=== PATIENT | female | born 1965 | race Caucasian/White ===

== ENCOUNTER 2019-09-09 20:30 | Outpatient (CLI) | payer BC | END 2019-09-09 20:31 | disposition home or self-care (01) | LOC: SLEEPLAB 20:30 | PROVIDERS: ATTEND Internal Medicine | DX: G47.33 Obstructive sleep apnea (adult) (pediatric) (principal) | CPT/HCPCS: 95811 ==

== ENCOUNTER 2020-05-02 08:35 | Outpatient (CLI) | payer BC | END 2020-05-02 08:36 | disposition home or self-care (01) | LOC: DTY/OP 08:35 | PROVIDERS: ATTEND Surgery | DX: E66.01 Morbid (severe) obesity due to excess calories (principal) | CPT/HCPCS: 97802 ==

== ENCOUNTER 2020-05-27 08:04 | Outpatient (CLI) | payer BC, OTHER ==
--- NOTE | 2020-05-27 15:36 | RAD ---
EXAM: Chest PA and lateral: HISTORY: Preop COMPARISON: 12/12/2017 FINDINGS: Lung larson are clear. Vascular markings are normal. Heart and mediastinum appear unremarkable. Osseous structures are unremarkable. IMPRESSION: Unremarkable chest
[2020-05-27 18:07] LABS: #Lymphocytes 2.4 thou/uL (1.20-3.40); #Monocytes 0.4 thou/uL (0.11-0.59); #Neutrophils 3.5 thou/uL (1.40-6.50); %Basophils 0.7 % (0.0-1.0); %Eosinophils 0.1 % (0.0-10.0); %Lymphocytes 37.6 % (21.0-51.0); %Monocytes 6.8 % (0.0-10.0); %Neutrophils 54.8 % (42.0-75.0); Hemoglobin 15.5 g/dL (12.0-16.0); Mean Corpuscular HGB CONC 33.8 g/dL (32.0-36.0); Mean Corpuscular Hemoglobin 29.2 pg (27.0-31.0); Mean Corpuscular Volume 86.4 fL (78.0-98.0); Mean Platelet Volume 9.8 fL (7.4-10.4); Platelet Count 220 thou/uL (130-400); RBC Distribution Width 11.7 % (11.5-14.5); Red Blood Cell (RBC) Count 5.29 mill/uL (4.20-5.40); White Blood Cell (WBC) Count 6.5 thou/uL (4.8-10.8)
[2020-05-27 18:15] LABS: Hemoglobin A1c 10.3 % (4.0-6.0)
[2020-05-27 18:19] LABS: ALT (SGPT) 31 U/L (8-55); AST (SGOT) 31 U/L (5-34); Alkaline Phosphatase 111 U/L (40-110); Anion Gap 11 mmol/L (10-20); BUN (Urea Nitrogen) 13 mg/dL (9.8-20.1); Bilirubin, Total 0.4 mg/dL (0.2-1.2); Calc. Creatinine Clearance 0 mL/min (70-130); Carbon Dioxide 28 mmol/L (22-29); Chloride 101 mmol/L (98-107); Estimated GFR-MDRD 73; Globulin 3.2 g/dL (2.4-3.5); Glucose 119 mg/dL (70-105); Potassium 4.3 mmol/L (3.5-5.1); Protein, Total 7.2 g/dL (6.0-8.3); Sodium 136 mmol/L (136-145)
[2020-05-28 12:06] LABS: SARS-CoV-2 MS2 Positive; SARS-CoV-2 N Gene Negative; SARS-CoV-2 S Gene Negative; SARS-CoV-2 by NAA Not Detected (NotDetected); SARS-CoV-2 orf1ab Negative
--- NOTE | 2020-06-03 13:20 | EKG ---
Test Reason : PREOP Blood Pressure : / mmHG Vent. Rate : 087 BPM Atrial Rate : 087 BPM P-R Int : 146 ms QRS Dur : 082 ms QT Int : 380 ms P-R-T Axes : 069 -38 029 degrees QTc Int : 457 ms Normal sinus rhythm Left axis deviation Abnormal ECG No previous ECGs available Confirmed by DR. Lizandro SIMPSON ([id number]) on 06/03/2020 1:20:29 PM Referred By: GURU Confirmed By:DR. Lizandro SIMPSON
== END 2020-05-27 08:05 | disposition home or self-care (01) ==
LOC: LABBT 08:04
PROVIDERS: ATTEND Surgery
DX: Z01.818 Encounter for other preprocedural examination (principal); Z20.828 Contact with and (suspected) exposure to other viral communicable diseases; E66.01 Morbid (severe) obesity due to excess calories
CPT/HCPCS: 71046; 80053; 83036; 85025; 87635; 93005; 93010; U0003

== ENCOUNTER 2020-05-27 14:45 | Inpatient (IN) | payer BC ==
[2020-05-31 11:28] VITALS: BMI 45.1
[2020-06-01] MEDS ORDERED: Lidocaine 1% PF 5 ML VIAL ONE (09:20)
[2020-06-01] MEDS ORDERED: Ondansetron PF 4 MG/2 ML Vial ONE (09:20)
[2020-06-01] MEDS ORDERED: Glycopyrrolate 0.2 MG/ML 5 ML SYRINGE ONE (09:20)
[2020-06-01] MEDS ORDERED: Succinylcholine Chloride 20 MG/ML 10 ml SYRINGE FS ONE (09:20)
[2020-06-01] MEDS ORDERED: Dexamethasone 20 MG/5 ML VIAL ONE (09:20)
[2020-06-01] MEDS ORDERED: PROPOFOL 200 MG/20 ML VIAL ONE (09:20)
[2020-06-01] MEDS ORDERED: Rocuronium Bromide 10 MG/ML (10ML VIAL) ONE (09:20)
[2020-06-01] MEDS ORDERED: Heparin 5,000 UNITS/ML VIAL ONE (13:24)
[2020-06-01] MEDS ORDERED: Midazolam HCl 2 mg/2 ml Vial ONE ×2 (14:01→14:26)
[2020-06-01] MEDS ORDERED: Bupivacaine/Epinephrine 0.25% 30 ML VIAL ONE ×2 (14:20→14:21)
[2020-06-01] MEDS ORDERED: Fentanyl 100 MCG/2 ML VIAL ONE (14:26)
[2020-06-01] MEDS ORDERED: SUGAMMADEX SODIUM 200 MG/2 ML VIAL ONE (15:21)
[2020-06-01] MEDS ORDERED: fentaNYL Citrate/PF 2,000 MCG in Sodium Chloride 0.9% 60 ML IV PRN (16:14)
[2020-06-01] MEDS ORDERED: Ondansetron PF 4 MG/2 ML Vial IVP PRN ×2 (16:14→17:39)
[2020-06-01] MEDS ORDERED: diphenhydrAMINE 50 MG/ML VIAL IM PRN (16:14)
[2020-06-01] MEDS ORDERED: diphenhydrAMINE 50 MG/ML VIAL IVP PRN ×2 (16:14→17:39)
[2020-06-01] MEDS ORDERED: diphenhydrAMINE 25 MG CAP PO PRN (16:14)
[2020-06-01] MEDS ORDERED: Zolpidem Tartrate 5 MG TAB PO PRN (16:14)
[2020-06-01] MEDS ORDERED: Naloxone HCl 0.4 mg/ml Vial IV PRN (16:14)
[2020-06-01] MEDS ORDERED: Communication Order-Pharmacy FS SCH (16:15)
--- NOTE | 2020-06-01 16:41 | OP ---
DATE OF PROCEDURE: 06/01/2020 PREOPERATIVE DIAGNOSES: 1. Morbid obesity with body mass index of 43. 2. Diabetes mellitus, insulin dependent. POSTOPERATIVE DIAGNOSES: 1. Morbid obesity with body mass index of 43. 2. Diabetes mellitus, insulin dependent. PROCEDURE PERFORMED: Laparoscopic sleeve gastrectomy with Ethicon staple line reinforcements and 38-Azerbaij[place] bougie. ANESTHESIA: General. ESTIMATED BLOOD LOSS: 50 mL. COMPLICATIONS: None. FINDINGS: Normal postoperative EGD. TECHNIQUE: The patient was taken to the operating room and laid supine on the operating room table. After general anesthetic was obtained, an OG tube was used to decompress the stomach and then removed. The arms and legs were double strapped to bariatric table. The abdomen was prepped and draped in a sterile fashion. Left subcostal 5-mm Optiview trocar was placed in usual fashion. High-flow pneumoperitoneum was obtained. Left and right abdominal 12 mm ports as well as a right subcostal 5 mm port were placed under direct visualization. A 5 mm incision was made at the xiphoid and Lupe was used to raise the liver off the GE junction. Short gastrics were taken down from midbody of the stomach to left camille of diaphragm. Left camille, posterior fundus, angle of His were completely dissected. There was no hiatal hernia. Short gastrics were taken down to a distance of 6 cm proximal to the pylorus. A 38-[place]ij[place] bougie was brought in and its tip left in the antrum of the stomach. Multiple loads of Avenel stapling device was used to form the sleeve. The first was fired up at a distance of 6 cm proximal to the pylorus, angled up towards the incisura. Care was taken to avoid being too close to incisura. Multiple loads were then fired up along the bougie. Stomach was completely transected at the angle of His. Stomach was removed from the left abdominal incision. This fascial defect was closed using GraNee needle Vicryl tie. There were few bleeders on the staple line and clipped using laparoscopic clip. The bougie was removed. An EGD scope was passed to esophagus, stomach to the level of duodenum without obstruction. No stricture at the incisura. No air leakage through the staple line. No stricture at the GE junction or involvement of the GE junction with the staple line. EGD scope was used to decompress the stomach, it was pulled and removed. All port sites were infiltrated using local anesthetic. All ports were removed under camera visualization. Pneumoperitoneum was let down. 4-0 Monocryl and Dermabond used to close all skin incisions. The patient was sent to Recovery in stable condition. All instrument counts, needle counts, and lap counts were correct. Job ID: [id number]
[2020-06-01] MEDS ORDERED: Dextrose 5% in Water 1,000 ML IV PRN (17:39)
[2020-06-01] MEDS ORDERED: hydrALAZINE 20 MG/ML VIAL SLOW IVP PRN (17:39)
[2020-06-01] MEDS ORDERED: HumaLOG 300 UNITS/3 ML VIAL SC PRN (17:39)
[2020-06-01] MEDS ORDERED: Hydrocodone-Acetamin 15 ML UDCUP PO PRN (17:39)
[2020-06-01] MEDS ORDERED: Dextrose 50% Abboject 50 ML SYRINGE SLOW IVP PRN (17:39)
[2020-06-01] MEDS: Sodium Chloride 0.9% 1,000 ML IV SCH ×2 (19:34→21:54)
[2020-06-01] MEDS ORDERED: Enoxaparin Sodium 40 MG/0.4 ML SYRINGE SC SCH (21:00)
[2020-06-02 05:54] LABS: #Lymphocytes 1.5 thou/uL (1.20-3.40); #Monocytes 0.4 thou/uL (0.11-0.59); #Neutrophils 6.7 thou/uL (1.40-6.50); %Basophils 0.1 % (0.0-1.0); %Eosinophils 0.1 % (0.0-10.0); %Lymphocytes 17.6 % (21.0-51.0); %Monocytes 5.1 % (0.0-10.0); %Neutrophils 77.1 % (42.0-75.0); Hemoglobin 13.9 g/dL (12.0-16.0); Mean Corpuscular HGB CONC 32.3 g/dL (32.0-36.0); Mean Corpuscular Hemoglobin 28.2 pg (27.0-31.0); Mean Corpuscular Volume 87.2 fL (78.0-98.0); Platelet Count 217 thou/uL (130-400); RBC Distribution Width 11.7 % (11.5-14.5); Red Blood Cell (RBC) Count 4.94 mill/uL (4.20-5.40); White Blood Cell (WBC) Count 8.7 thou/uL (4.8-10.8)
[2020-06-02] MEDS ORDERED: Levothyroxine Sodium 125 MCG TAB PO SCH (06:00)
[2020-06-02 06:11] LABS: Anion Gap 15 mmol/L (10-20); BUN (Urea Nitrogen) 11 mg/dL (9.8-20.1); Calc. Creatinine Clearance 155 mL/min (70-130); Carbon Dioxide 24 mmol/L (22-29); Chloride 102 mmol/L (98-107); Estimated GFR-MDRD 73; Glucose 252 mg/dL (70-105); Potassium 4.6 mmol/L (3.5-5.1); Sodium 136 mmol/L (136-145)
[2020-06-02] MEDS ORDERED: FLU VACC QS2020-21(6MOS UP)/PF 60 MCG/0.5 ML SYRINGE IM ONE (09:00)
[2020-06-02] MEDS ORDERED: Venlafaxine HCl XR 150 MG CAP PO SCH (09:00)
[2020-06-02] MEDS ORDERED: Pantoprazole 40 MG VIAL IVP SCH (09:00)
--- NOTE | 2020-06-02 09:58 | DIS ---
DATE OF ADMISSION: 06/01/2020 DATE OF DISCHARGE: 06/02/2020 ADMIT DIAGNOSES: Morbid obesity, diabetes mellitus. DISCHARGE DIAGNOSES: Morbid obesity, diabetes mellitus. PROCEDURE: Laparoscopic sleeve by Dr. Perry without complication. CONDITION ON DISCHARGE: Improved. STAFF: Bhargav Perry MD HOSPITAL COURSE: On postop day #1, the patient is doing well. She is tolerating liquids without difficulty. She is discharged home. She will follow up with me in 2 weeks. She is going to take half of her normal insulin dose, but check her Accu-Cheks at home and let Dr. Curran know if her sugars are either too high or too low. Job ID: [id number]
[2020-06-02 11:16] VITALS: BP 131/60; TEMP 98.5
[2020-06-02] MEDS: Sodium Chloride 0.9% 1,000 ML IV SCH (15:39)
== END 2020-06-02 11:50 | disposition home or self-care (01) | DRG 621 ==
LOC: SURG A 06-01 13:03
PROVIDERS: ADMIT Surgery; ATTEND Surgery
PROC: 0DB64Z3 Excision of Stomach, Percutaneous Endoscopic Approach, Vertical (ICD-10-PCS; principal; 2020-06-01)
PROC: 3E02340 Introduction of Influenza Vaccine into Muscle, Percutaneous Approach (ICD-10-PCS; 2020-06-01)
DX: E66.01 Morbid (severe) obesity due to excess calories (principal); Z20.828 Contact with and (suspected) exposure to other viral communicable diseases; Z68.41 Body mass index [BMI] 40.0-44.9, adult; E11.9 Type 2 diabetes mellitus without complications; G47.33 Obstructive sleep apnea (adult) (pediatric); E03.9 Hypothyroidism, unspecified; F32.9 Major depressive disorder, single episode, unspecified; J45.909 Unspecified asthma, uncomplicated; Z79.4 Long term (current) use of insulin; Z79.890 Hormone replacement therapy; Z90.710 Acquired absence of both cervix and uterus; Z90.49 Acquired absence of other specified parts of digestive tract; Z99.89 Dependence on other enabling machines and devices; Z23 Encounter for immunization
CPT/HCPCS: 36415; 36416; 80048; 85025; 88307; 88312; 90471; 90662; 90732; C9113; G0008; G0009; J0690; J1100; J1644; J1650; J2250; J2405; J2704; J3010

== ENCOUNTER 2022-04-18 18:12 | Observation (INO) | payer BC, SELFPAY ==
[~2022-04-18 18:12] MED LIST: Iopamidol-370 76% 500 ML 1 ML ONE
[2022-04-18] MEDS ORDERED: Ondansetron ODT 4 MG TAB ONE (18:52)
[2022-04-18] MEDS ORDERED: Nitroglycerin 0.4 MG TAB 1 EACH ONE (18:52)
[2022-04-18 19:29] LABS: #Eosinphils 0.1 thou/uL (0.0-0.7); #Lymphocytes 2.3 thou/uL (1.20-3.40); #Monocytes 0.7 thou/uL (0.11-0.59); #Neutrophils 7.3 thou/uL (1.40-6.50); %Basophils 0.4 % (0.0-1.0); %Eosinophils 0.6 % (0.0-10.0); %Monocytes 7.1 % (0.0-10.0); %Neutrophils 69.9 % (42.0-75.0); Hemoglobin 14.9 g/dL (12.0-16.0); Mean Corpuscular HGB CONC 32.8 g/dL (32.0-36.0); Mean Corpuscular Hemoglobin 28.7 pg (27.0-31.0); Mean Corpuscular Volume 87.4 fL (78.0-98.0); Mean Platelet Volume 8.6 fL (7.4-10.4); Platelet Count 220 thou/uL (130-400); RBC Distribution Width 11.8 % (11.5-14.5); Red Blood Cell (RBC) Count 5.21 mill/uL (4.20-5.40); White Blood Cell (WBC) Count 10.4 thou/uL (4.8-10.8)
[2022-04-18 19:53] LABS: ALT (SGPT) 21 U/L (8-55); AST (SGOT) 17 U/L (5-34); Albumin 3.6 g/dL (3.5-5.0); Alkaline Phosphatase 108 U/L (40-110); Anion Gap 18 mmol/L (10-20); BUN (Urea Nitrogen) 13 mg/dL (9.8-20.1); Bilirubin, Total 0.7 mg/dL (0.2-1.2); Calc. Creatinine Clearance 0 mL/min (70-130); Calcium 9.2 mg/dL (7.8-10.44); Carbon Dioxide 23 mmol/L (22-29); Chloride 97 mmol/L (98-107); Estimated GFR 63; Globulin 3.6 g/dL (2.4-3.5); Glucose 302 mg/dL (70-105); Lipase 8 U/L (8-78); Potassium 4.1 mmol/L (3.5-5.1); Protein, Total 7.2 g/dL (6.0-8.3); Sodium 134 mmol/L (136-145)
[2022-04-18] MEDS ORDERED: Lidocaine Viscous Sol 2% 15 ml UD Cup ONE (20:36)
[2022-04-18] MEDS ORDERED: Mag-Al 1200 mg/1200 mg/30 ML UDCUP ONE (20:36)
[2022-04-18] MEDS ORDERED: Acetaminophen 325 MG TAB PO SCH (21:30)
[2022-04-18] MEDS ORDERED: Lactated Ringer's 1,000 ML IV SCH ×2 (21:30→23:21)
[2022-04-18] MEDS ORDERED: Dextrose 5% in Water 1,000 ML IV PRN (21:47)
[2022-04-18] MEDS ORDERED: Dextrose 50% Abboject 50 ML SYRINGE SLOW IVP PRN (21:47)
[2022-04-18] MEDS ORDERED: HumaLOG 300 UNITS/3 ML VIAL SC PRN (21:47)
[2022-04-18] MEDS ORDERED: HumuLIN 70/30 (300 UNITS/3 ML VIAL) SC SCH (22:00)
[2022-04-18 22:11] VITALS: BMI 44.4
[2022-04-18 22:42] LABS: Troponin I Less than 0.010 ng/mL (< 0.028)
[2022-04-18 23:53] LABS: Bilirubin Negative (Negative); Blood, Urine 1+ (Negative); Clarity Turbid (Clear); Glucose, Urine (Dipstick) 300 mg/dL (Negative); Ketone, Urine 20 mg/dL (Negative); Leukocyte 500 Leu/uL (Negative); Nitrite Negative (Negative); Protein, Urine (Dipstick) 30 mg/dL (Neg-Trace); Squamous Epithelial None Seen HPF (0-3); Urobilinogen Normal mg/dL (Less than 2)
[2022-04-18 23:56] LABS: Bacteria/HPF 2+ HPF (None Seen); RBC/HPF 0-3 HPF (0-3)
[2022-04-18 23:57] LABS: Urine Culture Reflex Yes Yes
[2022-04-19] MEDS: Lactated Ringer's 1,000 ML IV SCH ×2 (01:06→09:50)
[2022-04-19 01:44] LABS: Cardiac Risk 5.6 (Less than 4.5)
[2022-04-19 04:26] VITALS: TEMP 98.3
[2022-04-19 05:09] LABS: #Basophils 0.1 thou/uL (0.0-0.2); #Eosinphils 0.1 thou/uL (0.0-0.7); #Lymphocytes 3.5 thou/uL (1.20-3.40); #Monocytes 0.9 thou/uL (0.11-0.59); %Basophils 0.6 % (0.0-1.0); %Eosinophils 1.3 % (0.0-10.0); %Lymphocytes 33.4 % (21.0-51.0); %Monocytes 8.1 % (0.0-10.0); %Neutrophils 56.6 % (42.0-75.0); Mean Corpuscular HGB CONC 33.1 g/dL (32.0-36.0); Mean Corpuscular Hemoglobin 29.3 pg (27.0-31.0); Mean Corpuscular Volume 88.4 fL (78.0-98.0); Mean Platelet Volume 8.8 fL (7.4-10.4); Platelet Count 200 thou/uL (130-400); RBC Distribution Width 11.9 % (11.5-14.5); Red Blood Cell (RBC) Count 4.77 mill/uL (4.20-5.40); White Blood Cell (WBC) Count 10.5 thou/uL (4.8-10.8)
[2022-04-19 05:34] LABS: ALT (SGPT) 19 U/L (8-55); AST (SGOT) 16 U/L (5-34); Albumin 3.2 g/dL (3.5-5.0); Alkaline Phosphatase 92 U/L (40-110); Anion Gap 12 mmol/L (10-20); BUN (Urea Nitrogen) 14 mg/dL (9.8-20.1); Bilirubin, Total 0.6 mg/dL (0.2-1.2); Calc. Creatinine Clearance 144 mL/min (70-130); Calcium 8.9 mg/dL (7.8-10.44); Carbon Dioxide 27 mmol/L (22-29); Chloride 101 mmol/L (98-107); Estimated GFR 81; Globulin 3.1 g/dL (2.4-3.5); Glucose 142 mg/dL (70-105); Potassium 3.4 mmol/L (3.5-5.1); Protein, Total 6.3 g/dL (6.0-8.3); Sodium 137 mmol/L (136-145)
[2022-04-19] MEDS ORDERED: Enoxaparin Sodium 40 MG/0.4 ML SYRINGE SC SCH ×2 (09:00→21:00)
[2022-04-19] MEDS ORDERED: Lansoprazole 3 MG/ML ORAL SUSPENSION PO SCH (09:00)
[2022-04-19] MEDS ORDERED: Sulfameth/Trimethoprim DS 800-160mg TAB PO SCH (09:00)
[2022-04-19 14:30] VITALS: BP 119/58
[2022-04-19] MEDS ORDERED: Atorvastatin Calcium 10 MG TAB PO SCH (21:00)
[2022-04-19] MEDS ORDERED: Nitrofurantoin Monohyd/M-Cryst 100 MG CAP PO SCH (21:00)
== END 2022-04-19 14:44 | disposition home or self-care (01) ==
LOC: ERS 18:12 → 2SW 21:01
PROVIDERS: ADMIT Student in an Organized Health Care Education/Training Program; ATTEND Family Medicine
DX: R07.89 Other chest pain (principal); R20.2 Paresthesia of skin; R51.9 Headache, unspecified; R53.81 Other malaise; N39.0 Urinary tract infection, site not specified; Z20.822 Contact with and (suspected) exposure to COVID-19; E11.9 Type 2 diabetes mellitus without complications; E03.8 Other specified hypothyroidism; K21.9 Gastro-esophageal reflux disease without esophagitis; Z79.4 Long term (current) use of insulin; Z79.899 Other long term (current) drug therapy; Z88.5 Allergy status to narcotic agent; Z88.8 Allergy status to other drugs, medicaments and biological substances
CPT/HCPCS: 36415; 36416; 71045; 71275; 78452; 80053; 80061; 81001; 83036; 83690; 83880; 84439; 84443; 84484; 85025; 87077; 87086; 87186; 93005; 93017; 94760; 96372; G0378; J1650; J7120; Q0162; Q9967; U0003; U0005

== ENCOUNTER 2022-04-28 23:16 | Emergency (ER) | payer SELFPAY ==
[2022-04-28 23:58] LABS: #Basophils 0.1 thou/uL (0.0-0.2); #Eosinphils 0.2 thou/uL (0.0-0.7); #Lymphocytes 2.8 thou/uL (1.20-3.40); #Monocytes 1.1 thou/uL (0.11-0.59); #Neutrophils 10.2 thou/uL (1.40-6.50); %Basophils 0.6 % (0.0-1.0); %Eosinophils 1.5 % (0.0-10.0); %Lymphocytes 19.3 % (21.0-51.0); %Monocytes 7.7 % (0.0-10.0); %Neutrophils 70.9 % (42.0-75.0); Hemoglobin 15.5 g/dL (12.0-16.0); Mean Corpuscular HGB CONC 33.4 g/dL (32.0-36.0); Mean Corpuscular Hemoglobin 29.3 pg (27.0-31.0); Mean Corpuscular Volume 87.9 fL (78.0-98.0); Mean Platelet Volume 8.9 fL (7.4-10.4); Platelet Count 235 thou/uL (130-400); RBC Distribution Width 11.9 % (11.5-14.5); Red Blood Cell (RBC) Count 5.29 mill/uL (4.20-5.40); White Blood Cell (WBC) Count 14.3 thou/uL (4.8-10.8)
[2022-04-29 00:20] LABS: ALT (SGPT) 22 U/L (8-55); AST (SGOT) 21 U/L (5-34); Albumin 3.8 g/dL (3.5-5.0); Alkaline Phosphatase 117 U/L (40-110); Anion Gap 18 mmol/L (10-20); BUN (Urea Nitrogen) 18 mg/dL (9.8-20.1); Bilirubin, Total 0.4 mg/dL (0.2-1.2); CK (CPK) 90 U/L (29-168); Calc. Creatinine Clearance 0 mL/min (70-130); Calcium 9.2 mg/dL (7.8-10.44); Carbon Dioxide 21 mmol/L (22-29); Chloride 96 mmol/L (98-107); Estimated GFR 36; Globulin 3.8 g/dL (2.4-3.5); Glucose 327 mg/dL (70-105); Potassium 3.9 mmol/L (3.5-5.1); Protein, Total 7.6 g/dL (6.0-8.3); Sodium 131 mmol/L (136-145)
== END 2022-04-29 02:00 | disposition home or self-care (01) ==
LOC: ERS 23:16
DX: I95.9 Hypotension, unspecified (principal); E11.9 Type 2 diabetes mellitus without complications
CPT/HCPCS: 36415; 71045; 80053; 82550; 84484; 85025; 93005

== ENCOUNTER 2022-11-08 11:03 | Emergency (ER) | payer MEDICARE, SELFPAY ==
[2022-11-08 12:26] LABS: #Eosinphils 0.1 thou/uL (0.0-0.7); #Lymphocytes 1.9 thou/uL (1.20-3.40); #Monocytes 0.4 thou/uL (0.11-0.59); #Neutrophils 5.3 thou/uL (1.40-6.50); %Basophils 0.5 % (0.0-1.0); %Eosinophils 1.3 % (0.0-10.0); %Lymphocytes 24.7 % (21.0-51.0); %Monocytes 5.6 % (0.0-10.0); %Neutrophils 67.9 % (42.0-75.0); Hemoglobin 15.9 g/dL (12.0-16.0); Mean Corpuscular HGB CONC 31.7 g/dL (32.0-36.0); Mean Corpuscular Volume 88.6 fl (78.0-98.0); Mean Platelet Volume 8.6 fL (7.4-10.4); Platelet Count 228 10x3/uL (130-400); RBC Distribution Width 11.9 % (11.5-14.5); Red Blood Cell (RBC) Count 5.67 mill/uL (4.20-5.40); White Blood Cell (WBC) Count 7.8 10x3/uL (4.8-10.8)
[2022-11-08 12:49] LABS: ALT (SGPT) 25 U/L (8-55); AST (SGOT) 26 U/L (5-34); Albumin 4.2 g/dL (3.5-5.0); Alkaline Phosphatase 121 U/L (40-110); Anion Gap 18 mmol/L (10-20); BUN (Urea Nitrogen) 18 mg/dL (9.8-20.1); Bilirubin, Total 0.5 mg/dL (0.2-1.2); Calc. Creatinine Clearance 0 mL/min (70-130); Calcium 9.3 mg/dL (7.8-10.44); Carbon Dioxide 25 mmol/L (22-29); Chloride 96 mmol/L (98-107); Estimated GFR 47; Globulin 3.3 g/dL (2.4-3.5); Glucose 386 mg/dL (70-105); Magnesium 1.9 mg/dL (1.6-2.6); Potassium 4.7 mmol/L (3.5-5.1); Protein, Total 7.5 g/dL (6.0-8.3); Sodium 134 mmol/L (136-145)
[2022-11-08 14:47] LABS: Bilirubin Negative (Negative); Blood, Urine Negative (Negative); Clarity Clear (Clear); Glucose, Urine (Dipstick) Greater than 1000 mg/dL (Negative); Ketone, Urine 40 mg/dL (Negative); Leukocyte Negative Leu/uL (Negative); Nitrite Negative (Negative); Protein, Urine (Dipstick) Negative (Neg-Trace); Specific Gravity, Urine 1.042 (1.002-1.036); Urobilinogen Normal mg/dL (Less than 2)
== END 2022-11-08 16:33 | disposition home or self-care (01) ==
LOC: ERS 11:03
DX: J01.90 Acute sinusitis, unspecified (principal); I95.9 Hypotension, unspecified; E11.9 Type 2 diabetes mellitus without complications
CPT/HCPCS: 36415; 36416; 80053; 81003; 83735; 84484; 85025; 87077; 87086; 87186; 93005